=== PATIENT | female | born 1945 | race Caucasian/White ===

== ENCOUNTER 2018-04-26 15:00 | Inpatient (IN) | payer OTHER ==
[~2018-04-26] VITALS: Ht 154.9 cm; Wt 46.8 kg
[~2018-04-26 15:00] MED LIST: CHOL20004 PO; OMEG1CAP6 PO; RALO60TA PO
[2018-04-26 17:35] VITALS: BP 133/65
[2018-04-26] MEDS ORDERED: SYNTHROID PO (17:45)
[2018-04-26] MEDS ORDERED: OXYCODONE PO (17:55)
[2018-04-28] VITALS (26 sets, daily range): BP systolic 109–189; BP diastolic 54–79
[2018-04-28] MEDS ORDERED: LIDOCAINE PF 2% 5ML ABBOJECT ONE (07:04)
[2018-04-28] MEDS ORDERED: SUCCINYLCHOLINE 200MG/10ML SYR ONE (07:04)
[2018-04-28] MEDS ORDERED: ONDANSETRON HCL 4 MG/2 ML VIAL ONE ×3 (07:05→12:34)
[2018-04-28] MEDS ORDERED: GLYCOPYRROLATE 1 MG/5 ML SYRINGE ONE (07:05)
[2018-04-28] MEDS ORDERED: PROPOFOL 10 MG/ML 20ML VIAL IV ONE (07:05)
[2018-04-28] MEDS ORDERED: DEXAMETHASONE SOD PHOSPHATE 10MG/ML 1ML VIAL ONE (07:05)
[2018-04-28] MEDS ORDERED: NEOSTIGMINE 5MG/5ML SYR IV ONE (07:05)
[2018-04-28] MEDS ORDERED: FENTANYL CITRATE PF 50 MCG/1 ML 2ML VIAL ONE (07:06)
[2018-04-28] MEDS ORDERED: ROCURONIUM 10MG/1ML SYR 10 MG/ML ML ONE (07:06)
[2018-04-28] MEDS ORDERED: MIDAZOLAM HCL 1 MG/ML 2ML VIAL ONE (07:06)
[2018-04-28] MEDS ORDERED: ROPIVACAINE 0.5% 5MG/ML 30ML IJ ONE (07:09)
[2018-04-28] MEDS ORDERED: LACTATED RINGERS 1000ML 1,000 ML IV ONE (07:10)
[2018-04-28] MEDS ORDERED: CEFAZOLIN SODIUM 1 GM VIAL ONE (07:10)
[2018-04-28 07:19] LABS: BASOPHILS % (AUTO) 0.9 % (0.0-5.0); EOSINOPHILS % (AUTO) 3.2 % (0.0-8.0); HEMATOCRIT 32.4 % (36-48); LYMPHOCYTES % (AUTO) 16.6 % (21.0-51.0); MEAN CORPUSCULAR HEMOGLOBIN 31.3 pg (27.0-33.0); MEAN CORPUSCULAR HGB CONC 33.7 g/dL (32.0-36.0); MEAN CORPUSCULAR VOLUME 92.7 fL (79-99); MONOCYTES % (AUTO) 9.3 % (3.0-13.0); PLATELET COUNT (AUTO) 219 K/uL (130-400); RED BLOOD CELL COUNT(AUTO) 3.49 MIL/uL (4.00-5.50); RED CELL DISTRIBUTION WIDTH 13.1 % (11.0-15.5); WHITE BLOOD COUNT (AUTO) 9.2 K/uL (4.8-10.8)
[2018-04-28 07:27] LABS: CREATININE 0.8 mg/dL (0.5-1.5)
[2018-04-28] MEDS ORDERED: TRANEXAMIC ACID 1000MG/10ML IV ONE ×2 (08:43→10:07)
[2018-04-28] MEDS ORDERED: POTASSIUM CHLORIDE 20 MEQ ERTAB PO PRN (09:45)
[2018-04-28] MEDS ORDERED: CALCIUM CARBONATE 500 MG TABLET PO PRN (09:45)
[2018-04-28] MEDS ORDERED: ONDANSETRON HCL 4 MG/2 ML VIAL IVP PRN (09:45)
[2018-04-28] MEDS ORDERED: DiphenhydrAMINE HCL 50 MG/ML VIAL IVP PRN (09:45)
[2018-04-28] MEDS ORDERED: TRAMADOL HCL 50 MG TABLET PO PRN (09:45)
[2018-04-28] MEDS ORDERED: LIDOCAINE HCL-MPF 1% 2ML VIAL IVP PRN (09:45)
[2018-04-28] MEDS ORDERED: POTASSIUM CHLORIDE 20MEQ/100ML 100 ML IV PRN (09:45)
[2018-04-28] MEDS ORDERED: POTASSIUM CHLORIDE 10% ELIXIR 20 MEQ/15 ML UDCUP PO PRN (09:45)
[2018-04-28] MEDS ORDERED: VANCOMYCIN HCL 1 GM VIAL ONE (10:57)
[2018-04-28] MEDS: ACETAMINOPHEN EXTRA STRENGTH 500 MG TABLET PO SCH ×2 (13:21→18:27)
[2018-04-28] MEDS: SODIUM CHLORIDE 0.9% 1000ML 1,000 ML IV SCH ×2 (13:24→19:44)
[2018-04-28] MEDS: CEFAZOLIN SODIUM 1 GM VIAL IVP SCH ×2 (16:30→23:19)
[2018-04-28] MEDS ORDERED: ASPIRIN 81MG TAB.CHEW PO SCH (17:00)
[2018-04-28] MEDS: KETOROLAC TROMETHAMINE 15MG/ML IV PRN (20:46)
[2018-04-28] MEDS: FAMOTIDINE 20MG TAB 20 MG TAB PO SCH (20:54)
[2018-04-28] MEDS: PREGABALIN 25 MG CAP PO SCH (20:54)
[2018-04-28] MEDS: ASPIRIN 81MG TAB.CHEW PO SCH (20:54)
[2018-04-28] MEDS: OXYCODONE HCL 5 MG TAB PO PRN ×2 (22:10→23:04)
[2018-04-29] MEDS: ACETAMINOPHEN EXTRA STRENGTH 500 MG TABLET PO SCH ×3 (02:08→17:45)
[2018-04-29 03:57] LABS: HEMATOCRIT 25.2 % (36-48); MEAN CORPUSCULAR HEMOGLOBIN 31.8 pg (27.0-33.0); MEAN CORPUSCULAR HGB CONC 34.5 g/dL (32.0-36.0); MEAN CORPUSCULAR VOLUME 92.2 fL (79-99); PLATELET COUNT (AUTO) 203 K/uL (130-400); RED BLOOD CELL COUNT(AUTO) 2.74 MIL/uL (4.00-5.50); RED CELL DISTRIBUTION WIDTH 12.9 % (11.0-15.5); WHITE BLOOD COUNT (AUTO) 12.3 K/uL (4.8-10.8)
[2018-04-29 04:04] VITALS: BP 132/63
[2018-04-29 04:06] LABS: POTASSIUM 3.8 mmol/L (3.5-5.1)
[2018-04-29] MEDS: SODIUM CHLORIDE 0.9% 1000ML 1,000 ML IV SCH (04:10)
[2018-04-29] MEDS ORDERED: LEVOTHYROXINE 25 MCG TABLET PO SCH (06:30)
[2018-04-29] MEDS: OXYCODONE HCL 5 MG TAB PO PRN ×3 (06:42→21:23)
[2018-04-29 08:08] VITALS: BP 142/64
[2018-04-29] MEDS: FAMOTIDINE 20MG TAB 20 MG TAB PO SCH ×2 (08:53→20:07)
[2018-04-29] MEDS: PREGABALIN 25 MG CAP PO SCH ×2 (08:53→20:07)
[2018-04-29] MEDS: ASPIRIN 81MG TAB.CHEW PO SCH ×2 (09:01→20:07)
[2018-04-29] MEDS: POLYETHYLENE GLYCOL 3350 17 GM POWD.PACK PO SCH (09:01)
[2018-04-29 11:39] VITALS: BP 110/58
[2018-04-29 11:41] VITALS: BP 160/74
[2018-04-29 19:49] VITALS: BP 135/65
[2018-04-29 23:49] VITALS: BP 126/60
[2018-04-30] MEDS: ACETAMINOPHEN EXTRA STRENGTH 500 MG TABLET PO SCH ×2 (01:45→10:11)
[2018-04-30 07:22] LABS: BASOPHILS % (AUTO) 0.4 % (0.0-5.0); EOSINOPHILS % (AUTO) 3.9 % (0.0-8.0); HEMATOCRIT 26.3 % (36-48); LYMPHOCYTES % (AUTO) 17.5 % (21.0-51.0); MEAN CORPUSCULAR HEMOGLOBIN 31.6 pg (27.0-33.0); MEAN CORPUSCULAR HGB CONC 34.1 g/dL (32.0-36.0); MEAN CORPUSCULAR VOLUME 92.7 fL (79-99); MONOCYTES % (AUTO) 8.9 % (3.0-13.0); NEUTROPHILS % (AUTO) 69.3 % (40.0-77.0); PLATELET COUNT (AUTO) 202 K/uL (130-400); RED BLOOD CELL COUNT(AUTO) 2.84 MIL/uL (4.00-5.50); RED CELL DISTRIBUTION WIDTH 13.1 % (11.0-15.5); WHITE BLOOD COUNT (AUTO) 9.4 K/uL (4.8-10.8)
[2018-04-30 07:55] VITALS: BP 149/73
[2018-04-30] MEDS: PREGABALIN 25 MG CAP PO SCH (08:44)
[2018-04-30] MEDS: FAMOTIDINE 20MG TAB 20 MG TAB PO SCH (08:44)
[2018-04-30] MEDS: ASPIRIN 81MG TAB.CHEW PO SCH (08:44)
[2018-04-30] MEDS: POLYETHYLENE GLYCOL 3350 17 GM POWD.PACK PO SCH (08:44)
[2018-04-30] MEDS: OXYCODONE HCL 5 MG TAB PO PRN ×2 (08:44→13:14)
[2018-04-30] MEDS: KETOROLAC TROMETHAMINE 15MG/ML IV PRN (10:40)
[2018-04-30 11:04] VITALS: BP 156/77
[2018-05-01] MEDS ORDERED: BISACODYL 10 MG SUPP.RECT RC PRN (09:45)
== END 2018-04-30 14:56 | disposition home health service (06) | DRG 483 ==
LOC: EDSTATUS 04-27 12:30 → DAHIP 04-28 06:53 → 4AH 04-28 12:48
PROVIDERS: ADMIT Orthopaedic Surgery; ATTEND Orthopaedic Surgery
PROC: 0RRK00Z Replacement of Left Shoulder Joint with Reverse Ball and Socket Synthetic Substitute, Open Approach (ICD-10-PCS; principal; 2018-04-28 09:54)
DX: S42.242A 4-part fracture of surgical neck of left humerus, initial encounter for closed fracture (principal); W11.XXXA Fall on and from ladder, initial encounter; Y93.89 Activity, other specified; Y92.096 Garden or yard of other non-institutional residence as the place of occurrence of the external cause; Y99.8 Other external cause status; M19.90 Unspecified osteoarthritis, unspecified site; M47.892 Other spondylosis, cervical region; E03.9 Hypothyroidism, unspecified
CPT/HCPCS: 36415; 73020; 80048; 85025; 85027; A4218; J0330; J0690; J1100; J1885; J2001; J2250; J2405; J2704; J2710; J2795; J3010; J3370; J3490; J7120

== ENCOUNTER → 2020-12-16 | Outpatient (CLI) | payer MEDICARE ==
[~2020-12-16] MED LIST changes: +OXYCODONE PO; +SYNTHROID PO
== END | disposition home or self-care (01) ==
LOC: RAH 10:50
PROVIDERS: ATTEND Neurological Surgery
DX: M47.816 Spondylosis without myelopathy or radiculopathy, lumbar region (principal); M41.86 Other forms of scoliosis, lumbar region; M43.16 Spondylolisthesis, lumbar region
CPT/HCPCS: 72114

== ENCOUNTER → 2022-12-09 | Outpatient (CLI) | payer MEDICARE | END | disposition home or self-care (01) | LOC: RAH 10:43 | PROVIDERS: ATTEND Physical Medicine & Rehabilitation | DX: M51.17 Intervertebral disc disorders with radiculopathy, lumbosacral region (principal); M48.07 Spinal stenosis, lumbosacral region; M43.16 Spondylolisthesis, lumbar region; G57.63 Lesion of plantar nerve, bilateral lower limbs | CPT/HCPCS: 72148 ==

== ENCOUNTER → 2023-08-02 | Outpatient (CLI) | payer MEDICARE ==
[~2023-08-02] MED LIST changes: +RALO60 PO; -RALO60TA PO
== END | disposition home or self-care (01) ==
LOC: RAH 13:48
PROVIDERS: ATTEND Physical Medicine & Rehabilitation
DX: M47.26 Other spondylosis with radiculopathy, lumbar region (principal); M48.07 Spinal stenosis, lumbosacral region
CPT/HCPCS: 72148